=== PATIENT | male | born 1985 | race Two or more races ===

== ENCOUNTER 2020-04-13 00:58 | Emergency (ER) | payer BC ==
[2020-04-13] MEDS ORDERED: Pantoprazole 40 MG in Sodium Chloride 0.9% 10 ML IV ONE (01:30)
[2020-04-13] MEDS ORDERED: Morphine 4 MG/ML Syringe IVPUSH ONE (01:30)
[2020-04-13] MEDS ORDERED: Sodium Chloride 0.9% 1,000 ML IV ONE (01:30)
[2020-04-13] MEDS ORDERED: Sodium Chloride 0.9% 10 ML Syringe FLUSH PRN (01:30)
[2020-04-13] MEDS ORDERED: Ketorolac 15 MG/ML SDV IVPUSH ONE (01:30)
[2020-04-13] MEDS ORDERED: Ondansetron 4 MG/2 ML SDV IVPUSH ONE (01:30)
[2020-04-13] MEDS ORDERED: Sodium Chloride 0.9% 2.5 ML Syringe FLUSH PRN (01:30)
--- NOTE | 2020-04-13 01:33 | EDM.PDOC ---
ED HPI GENERAL MEDICAL PROBLEM - General Chief Complaint: Abdominal Pain Stated Complaint: GALL STONES Time Seen by Provider: 04/13/20 01:16 Source of Information: Reports: Patient History Limitations: Reports: No Limitations - History of Present Illness INITIAL COMMENTS - FREE TEXT/NARRATIVE: 34-year-old male with history of cholelithiasis presents with acute onset sharp, nonradiating, constant, postprandial right upper quadrant pain 2 hours ago. Alleviating factors associated with one episode of nonbilious and nonbloody vomitus. Denies fever, chills, shortness of breath, chest pain. He did drink beer and cocktail shots prior. ROS: A 10-point review of systems, other than pertinent positives and negatives as stated per HPI, is otherwise negative Past medical history: No additional pertinent history Past Surgical history: No additional pertinent history Social history: No additional pertinent history Family history: No additional pertinent history PHYSICAL EXAM General: AOx4, GCS = 15, BMI = 38, mild distress HEENT: dry mucous membrane Neck: supple, no meningismus, no Kernig or Brudzinski Cardiac: S1S2 RRR Respiratory: CTAB, no crackles or rales, no wheezing Abdomen: Soft, tender to right upper quadrant and epigastric, no rebound or guarding, nondistended, no pulsatile mass. Back: nontender Musculoskeletal: NVI distally, no deformity Neuro: No focal deficits, CN 2 - 12 WNL. RUQ Pain Score (Numeric/FACES): 8 - Related Data Allergies Allergy/AdvReac Type Severity Reaction Status Date / Time No Known Allergies Allergy Verified 04/13/20 01:03 Home Meds: Home Meds Naproxen [Naprosyn] 500 mg PO Q12HR #30 tab 04/13/20 [Rx] Past Medical History Other Gastrointestinal History: gall stones Social & Family History - Family History Family Medical History: No Pertinent Family History - Caffeine Use Caffeine Use: Reports: Energy Drinks - Recreational Drug Use Recreational Drug Use: No ED ROS GENERAL - Review of Systems Review Of Systems: See Below (see dictation) ED EXAM, GI/ABD - Physical Exam Exam: See Below (see dictation) ED ABDOMINAL/GI PROCEDURES - Ultrasound Ultrasound: Normal Progress: Right upper quadrant Ultrasound Indication: Evaluation for cholelithiasis, cholecystitis, CBD dilation Technique: Gallbladder in long axis and transverse axis were obtained with patient in left lateral decubitus position. Findings: GB wall thickness is 1.5mm, No gallbladder wall thickening, No pericholecystic fluid, multiple small gallstones at the fundus, CBD is 2.7mm Impression: Cholelithiasis Performed and interpreted at the time of patient care, scan image(s) archived. Certified by Ulises Malone MD Course - Vital Signs Last Recorded V/S: Last Vital Signs Temp 98.1 F 04/13/20 01:10 Pulse 58 L 04/13/20 02:02 Resp 16 04/13/20 02:02 BP 150/83 H 04/13/20 02:02 Pulse Ox 95 04/13/20 02:03 - Orders/Labs/Meds Orders: Active Orders 24 hr Category Date Time Status Sodium Chloride 0.9% [Normal Saline] 1,000 ml Med 04/13/20 01:30 Active IV .Bolus Sodium Chloride 0.9% [Saline Flush] Med 04/13/20 01:30 Active 10 ml FLUSH ASDIRECTED PRN Sodium Chloride 0.9% [Saline Flush] Med 04/13/20 01:30 Active 2.5 ml FLUSH ASDIRECTED PRN Saline Lock Insert [OM.PC] Stat Oth 04/13/20 01:30 Ordered Medication Orders Sodium Chloride (Normal Saline) 1,000 mls @ 999 mls/hr IV .Bolus ONE Stop: 04/13/20 02:30 Last Admin: 04/13/20 01:39 Dose: 999 mls/hr Documented by: DERICK Sodium Chloride (Saline Flush) 10 ml FLUSH ASDIRECTED PRN PRN Reason: Keep Vein Open Last Admin: 04/13/20 01:44 Dose: 10 ml Documented by: DERICK Sodium Chloride (Saline Flush) 2.5 ml FLUSH ASDIRECTED PRN PRN Reason: Keep Vein Open Last Admin: 04/13/20 01:43 Dose: 2.5 ml Documented by: DERICK Labs: Laboratory Tests 04/13/20 04/13/20 04/13/20 Range/Units 01:02 01:20 01:20 WBC 9.03 (4.0-11.0) K/uL RBC 6.04 H (4.50-5.90) M/uL Hgb 16.4 (13.0-17.0) g/dL Hct 48.4 (38.0-50.0) % MCV 80.1 (80.0-98.0) fL MCH 27.2 (27.0-32.0) pg MCHC 33.9 (31.0-37.0) g/dL RDW Std Deviation 39.9 (28.0-62.0) fl RDW Coeff of Cassie 14 (11.0-15.0) % Plt Count 317 (150-400) K/uL MPV 8.80 (7.40-12.00) fL Neut % (Auto) 60.5 (48.0-80.0) % Lymph % (Auto) 31.7 (16.0-40.0) % [place] % (Auto) 6.4 (0.0-15.0) % Eos % (Auto) 1.3 (0.0-7.0) % Baso % (Auto) 0.1 (0.0-1.5) % Neut # (Auto) 5.5 (1.4-5.7) K/uL Lymph # (Auto) 2.9 H (0.6-2.4) K/uL [place] # (Auto) 0.6 (0.0-0.8) K/uL Eos # (Auto) 0.1 (0.0-0.7) K/uL Baso # (Auto) 0.0 (0.0-0.1) K/uL Sodium 142 (136-148) mmol/L Potassium 3.4 L (3.5-5.1) mmol/L Chloride 102 (98-107) mmol/L Carbon Dioxide 28.5 (21.0-32.0) mmol/L BUN 10 (7.0-18.0) mg/dL Creatinine 1.4 H (0.8-1.3) mg/dL Est Cr Clr Drug Dosing 73.29 mL/min Estimated GFR (MDRD) 58.7 ml/min Glucose 130 H (74-106) mg/dL Calcium 8.7 (8.5-10.1) mg/dL Total Bilirubin 0.5 (0.2-1.0) mg/dL Direct Bilirubin 0.10 (0.0-0.5) mg/dL Indirect Bilirubin 0.40 AST 22 (15-37) IU/L ALT 74 H (14-63) IU/L Alkaline Phosphatase 95 (46-116) U/L Total Protein 8.2 (6.4-8.2) g/dL Albumin 4.2 (3.4-5.0) g/dL Globulin 4.0 (2.6-4.0) g/dL Albumin/Globulin Ratio 1.0 (0.9-1.6) Lipase 105 (73-393) U/L Urine Color YELLOW Urine Appearance CLEAR Urine pH 5.5 (5.0-8.0) Ur Specific [place] >= 1.030 (1.001-1.035) Urine Protein NEGATIVE (NEGATIVE) mg/dL Urine Glucose (UA) NEGATIVE (NEGATIVE) mg/dL Urine Ketones NEGATIVE (NEGATIVE) mg/dL Urine Occult Blood NEGATIVE (NEGATIVE) Urine Nitrite NEGATIVE (NEGATIVE) Urine Bilirubin NEGATIVE (NEGATIVE) Urine Urobilinogen 0.2 (<2.0) EU/dL Ur Leukocyte Esterase TRACE H (NEGATIVE) Urine RBC NONE SEEN (0-2/HPF) Urine WBC 3-5 (0-5/HPF) Ur Epithelial Cells OCCASIONAL (NONE-FEW) Urine Bacteria 1+ H (NEGATIVE) Urine Mucus LIGHT (NONE-MOD) Meds: Medications Generic Name Dose Route Start Last Admin Trade Name Freq PRN Reason Stop Dose Admin Sodium Chloride 1,000 mls @ 999 mls/hr 04/13/20 01:30 04/13/20 01:39 Normal Saline IV 04/13/20 02:30 999 mls/hr .Bolus ONE Administration Sodium Chloride 10 ml 04/13/20 01:30 04/13/20 01:44 Saline Flush FLUSH 10 ml ASDIRECTED PRN Administration Keep Vein Open Sodium Chloride 2.5 ml 04/13/20 01:30 04/13/20 01:43 Saline Flush FLUSH 2.5 ml ASDIRECTED PRN Administration Keep Vein Open Discontinued Medications Generic Name Dose Route Start Last Admin Trade Name Freq PRN Reason Stop Dose Admin Pantoprazole Sodium 40 mg/ 10 mls @ 300 mls/hr 04/13/20 01:30 04/13/20 01:43 Sodium Chloride IV 04/13/20 01:31 300 mls/hr NOW ONE Administration Ketorolac Tromethamine 15 mg 04/13/20 01:30 04/13/20 01:41 Toradol IVPUSH 04/13/20 01:31 15 mg ONETIME ONE Administration Morphine Sulfate 4 mg 04/13/20 01:30 04/13/20 01:41 Morphine IVPUSH 04/13/20 01:31 4 mg ONETIME ONE Administration Ondansetron HCl 4 mg 04/13/20 01:30 04/13/20 01:40 Zofran IVPUSH 04/13/20 01:31 4 mg ONETIME ONE Administration - Re-Assessments/Exams Free Text/Narrative Re-Assessment/Exam: 04/13/20 01:33 Ordered IV fluids, Zofran, Toradol, morphine. 04/13/20 02:33 after IV pain medication in the ER, his pain resolved and he is currently stable for discharge. I performed a repeat exam and did not appreciate new abnormal findings. Patient exhibits normal vital signs and has a normal gait on road test. I advised the patient to return to the ER for reevaluation if symptoms worsened, including fever, worsening pain, or any other worrisome symptoms. I instructed the patient to follow up with surgery clinic within 2-3 days to schedule for elective cholecystectomy. MEDICAL DECISION MAKING: I reviewed the patients past medical records, lab and radiographic findings. I discussed the case with the patient. My differential diagnosis included: Biliary colic, cholecystitis, pancreatitis. Patient had no fever or leukocytosis or tachycardia to suggest for significant infectious etiology, ultrasound did not demonstrate cholecystitis or choledocholithiasis. His lipase was unremarkable, I do not suspect pancreatitis. His pain resolved in the ER, stable for outpatient follow-up with surgery clinic for elective cholecystectomy. He was given strict return precautions. Departure - Departure Time of Disposition: 02:16 Disposition: Home, Self-Care 01 Condition: Good Clinical Impression: Biliary colic - Discharge Information *PRESCRIPTION DRUG MONITORING PROGRAM REVIEWED*: Not Applicable *COPY OF PRESCRIPTION DRUG MONITORING REPORT IN PATIENT ALICE: Not Applicable Prescriptions: Naproxen [Naprosyn] 500 mg PO Q12HR #30 tab Instructions: Biliary Colic, Adult Referrals: Ru Vu MD [Physician] - 2 Days Forms: ED Department Discharge Additional Instructions: The need for follow-up, as well as the timing and circumstances, are variable depending upon the specifics of your emergency department visit. If you don't have a primary care physician on staff, we will provide you with a referral. We always advise you to contact your personal physician following an emergency department visit to inform them of the circumstance of the visit and for follow-up with them and/or the need for any referrals to a consulting specialist. The emergency department will also refer you to a specialist when appropriate. This referral assures that you have the opportunity for follow-up care with a specialist. All of these measure are taken in an effort to provide you with optimal care, which includes your follow-up. Under all circumstances we always encourage you to contact your private physician who remains a resource for coordinating your care. When calling for follow-up care, please make the office aware that this follow-up is from your recent emergency room visit. If for any reason you are refused follow-up, please contact the [facility] Emergency Department at and asked to speak to the emergency department charge nurse. If you do not have a primary care doctor, please follow up with the clinics below within 3-5 days. [facility] - [facility] Professional Building [address] [place] [address], [address] [place] [address] Sepsis Event Note (ED) - Evaluation Sepsis Screening Result: No Definite Risk - Focused Exam Vital Signs: Vital Signs Temp Pulse Resp BP Pulse Ox 04/13/20 02:03 95 04/13/20 02:02 58 L 16 150/83 H 82 L 04/13/20 01:10 98.1 F 60 18 167/85 H 99 - My Orders Last 24 Hours: My Active Orders 04/13/20 01:30 Sodium Chloride 0.9% [Normal Saline] 1,000 ml IV .Bolus Sodium Chloride 0.9% [Saline Flush] 10 ml FLUSH ASDIRECTED PRN Sodium Chloride 0.9% [Saline Flush] 2.5 ml FLUSH ASDIRECTED PRN Saline Lock Insert [OM.PC] Stat - Assessment/Plan Last 24 Hours: My Active Orders 04/13/20 01:30 Sodium Chloride 0.9% [Normal Saline] 1,000 ml IV .Bolus Sodium Chloride 0.9% [Saline Flush] 10 ml FLUSH ASDIRECTED PRN Sodium Chloride 0.9% [Saline Flush] 2.5 ml FLUSH ASDIRECTED PRN Saline Lock Insert [OM.PC] Stat
[2020-04-13 02:00] LABS: BILIRUBIN INDIRECT 0.4; CARBON DIOXIDE,CO2 28.5 mmol/L (21.0-32.0); POTASSIUM,K 3.4 mmol/L (3.5-5.1)
== END 2020-04-13 03:35 | disposition home or self-care (01) ==
LOC: MW.ED 00:58
DX: K80.50 Calculus of bile duct without cholangitis or cholecystitis without obstruction (principal)
CPT/HCPCS: 36415; 80048; 80076; 81001; 83690; 85025; 96374; 96375; 99284; C9113; J1885; J2270; J2405; J7030; 99283

== ENCOUNTER 2020-04-24 07:12 | Emergency (ER) | payer BC ==
[2020-04-24] MEDS ORDERED: Sodium Chloride 0.9% 2.5 ML Syringe FLUSH PRN (07:13)
[2020-04-24] MEDS ORDERED: Sodium Chloride 0.9% 10 ML Syringe FLUSH PRN (07:13)
[2020-04-24] MEDS ORDERED: Ondansetron 4 MG/2 ML SDV IVPUSH ONE (07:13)
[2020-04-24] MEDS ORDERED: Morphine 4 MG/ML Syringe IVPUSH ONE ×2 (07:13→09:24)
[2020-04-24] MEDS ORDERED: Ketorolac 15 MG/ML SDV IVPUSH ONE (07:16)
--- NOTE | 2020-04-24 07:19 | EDM.PDOC ---
ED HPI GENERAL MEDICAL PROBLEM - General Chief Complaint: General Stated Complaint: GALL STONES Time Seen by Provider: 04/24/20 07:12 Source of Information: Reports: Patient History Limitations: Reports: No Limitations - History of Present Illness INITIAL COMMENTS - FREE TEXT/NARRATIVE: 34-year-old male past medical history cholelithiasis presents for right upper quadrant pain. Patient notes that he was diagnosed with gallstones roughly 8 months ago. Patient is from [place] and is here for work. He has had on and off issues with his gallbladder ever since his diagnosis. He did come to the ER roughly 11 days ago and was again diagnosed with cholelithiasis without evidence of cholecystitis or choledocholithiasis. He notes that he was given a prescription for naproxen but did not pick that up. He has been treating his pain at home with an old prescription of hydrocodone that he had gotten in [place] months ago, but he ran out this morning. He has also been using Tylenol. He notes some nausea without vomiting. Pain woke him from sleep today around 3 AM. He has had pain like this before but it does seem like it is becoming more common. He denies any fevers, changes in skin color, vomiting. His pain is localized to his right upper quadrant. Patient notes that he has not yet followed up with a general surgeon not due to lack of interest in surgery but rather concern for cost. abdomen Pain Score (Numeric/FACES): 8 - Related Data Allergies Allergy/AdvReac Type Severity Reaction Status Date / Time No Known Allergies Allergy Verified 04/13/20 01:03 Home Meds: Home Meds oxyCODONE HCl/Acetaminophen [Percocet 10-325 mg Tablet] 0.5 each PO Q4H PRN #18 tablet 04/24/20 [Rx] Past Medical History Other Gastrointestinal History: gall stones Social & Family History - Family History Family Medical History: No Pertinent Family History - Caffeine Use Caffeine Use: Reports: Energy Drinks ED ROS GENERAL - Review of Systems Review Of Systems: Comprehensive ROS is negative, except as noted in HPI. ED EXAM, GENERAL - Physical Exam Exam: See Below Exam Limited By: No Limitations General Appearance: Alert, WD/WN, Other (Uncomfortable appearing but in no apparent distress, speaking full sentences) Eye Exam: Bilateral Eye: Other (No scleral icterus noted) Throat/Mouth: Normal Voice, No Airway Compromise Head: Atraumatic, Normocephalic Neck: Normal Inspection Respiratory/Chest: No Respiratory Distress, No Accessory Muscle Use Cardiovascular: Normal Peripheral Pulses, Regular Rate, Rhythm GI/Abdominal: Soft, Other (Right upper quadrant tenderness to palpation) Extremities: Normal Inspection Neurological: Alert, Normal Gait Psychiatric: Normal Affect, Normal Mood Skin Exam: Warm, Dry, Intact, Normal Color, Other (No jaundice noted) Course - Vital Signs Last Recorded V/S: Last Vital Signs Temp 96 F L 04/24/20 07: Pulse 66 04/24/20 08:00 Resp 16 04/24/20 07:21 BP 144/79 H 04/24/20 08:00 Pulse Ox 100 04/24/20 08:00 - Orders/Labs/Meds Orders: Active Orders 24 hr Category Date Time Status Sodium Chloride 0.9% [Saline Flush] Med 04/24/20 07:13 Active 10 ml FLUSH ASDIRECTED PRN Sodium Chloride 0.9% [Saline Flush] Med 04/24/20 07:13 Active 2.5 ml FLUSH ASDIRECTED PRN Saline Lock Insert [OM.PC] Stat Oth 04/24/20 07:13 Ordered Medication Orders Sodium Chloride (Saline Flush) 10 ml FLUSH ASDIRECTED PRN PRN Reason: Keep Vein Open Last Admin: 04/24/20 07:29 Dose: 10 ml Documented by: LISE Sodium Chloride (Saline Flush) 2.5 ml FLUSH ASDIRECTED PRN PRN Reason: Keep Vein Open Last Admin: 04/24/20 07:29 Dose: 2.5 ml Documented by: LISE Labs: Laboratory Tests 04/24/20 04/24/20 Range/Units 07:34 07:34 WBC 10.84 (4.0-11.0) K/uL RBC 5.75 (4.50-5.90) M/uL Hgb 15.9 (13.0-17.0) g/dL Hct 47.6 (38.0-50.0) % MCV 82.8 (80.0-98.0) fL MCH 27.7 (27.0-32.0) pg MCHC 33.4 (31.0-37.0) g/dL RDW Std Deviation 41.0 (28.0-62.0) fl RDW Coeff of Cassie 14 (11.0-15.0) % Plt Count 299 (150-400) K/uL MPV 9.10 (7.40-12.00) fL Neut % (Auto) 72.9 (48.0-80.0) % Lymph % (Auto) 20.3 (16.0-40.0) % [place] % (Auto) 5.3 (0.0-15.0) % Eos % (Auto) 1.4 (0.0-7.0) % Baso % (Auto) 0.1 (0.0-1.5) % Neut # (Auto) 7.9 H (1.4-5.7) K/uL Lymph # (Auto) 2.2 (0.6-2.4) K/uL [place] # (Auto) 0.6 (0.0-0.8) K/uL Eos # (Auto) 0.2 (0.0-0.7) K/uL Baso # (Auto) 0.0 (0.0-0.1) K/uL Nucleated RBC % 0.0 /100WBC Nucleated RBCs # 0 K/uL Sodium 140 (136-148) mmol/L Potassium 3.7 (3.5-5.1) mmol/L Chloride 103 (98-107) mmol/L Carbon Dioxide 26.1 (21.0-32.0) mmol/L BUN 10 (7.0-18.0) mg/dL Creatinine 1.3 (0.8-1.3) mg/dL Est Cr Clr Drug Dosing 78.92 mL/min Estimated GFR (MDRD) > 60.0 ml/min Glucose 117 H (74-106) mg/dL Calcium 8.7 (8.5-10.1) mg/dL Total Bilirubin 0.8 (0.2-1.0) mg/dL AST 29 (15-37) IU/L ALT 69 H (14-63) IU/L Alkaline Phosphatase 95 (46-116) U/L Total Protein 7.8 (6.4-8.2) g/dL Albumin 3.9 (3.4-5.0) g/dL Globulin 3.9 (2.6-4.0) g/dL Albumin/Globulin Ratio 1.0 (0.9-1.6) Lipase 89 (73-393) U/L Meds: Medications Generic Name Dose Route Start Last Admin Trade Name Arya PRN Reason Stop Dose Admin Sodium Chloride 10 ml 04/24/20 07:13 04/24/20 07:29 Saline Flush FLUSH 10 ml ASDIRECTED PRN Administration Keep Vein Open Sodium Chloride 2.5 ml 04/24/20 07:13 04/24/20 07:29 Saline Flush FLUSH 2.5 ml ASDIRECTED PRN Administration Keep Vein Open Discontinued Medications Generic Name Dose Route Start Last Admin Trade Name Arya PRN Reason Stop Dose Admin Sodium Chloride 1,000 mls @ 999 mls/hr 04/24/20 07:26 04/24/20 07:29 Normal Saline IV 04/24/20 08:26 999 mls/hr .Bolus ONE Administration Ketorolac Tromethamine 15 mg 04/24/20 07:16 04/24/20 07:29 Toradol IVPUSH 04/24/20 07:17 15 mg ONETIME ONE Administration Morphine Sulfate 4 mg 04/24/20 07:13 04/24/20 07:30 Morphine IVPUSH 04/24/20 07:14 4 mg ONETIME ONE Administration Ondansetron HCl 4 mg 04/24/20 07:13 04/24/20 07:30 Zofran IVPUSH 04/24/20 07:14 4 mg ONETIME ONE Administration Oxycodone/Acetaminophen 2 tab 04/24/20 08:29 04/24/20 08:41 Percocet 325-5 Mg PO 04/24/20 08:30 2 tab ONETIME ONE Administration - Re-Assessments/Exams Free Text/Narrative Re-Assessment/Exam: 04/24/20 07:39 Patient presents with right upper quadrant pain and known setting of gallbladder disease. Will get labs including CBC to check for signs of leukoc ytosis/infection. Will get CMP to evaluate LFTs and bilirubin levels. Will get lipase to ensure no pancreatitis. Will consider imaging based on lab results although would prefer to defer imaging if patient does not have signs of infection as he has known gallbladder disease likely causing his pain. Will give Toradol and morphine for analgesia. Will give 1 L IV fluid bolus. Will give Zofran for nausea. We will follow up results and disposition accordingly. 04/24/20 08:06 Labs grossly unremarkable; will reassess pain and disposition accordingly 04/24/20 08:29 Patient's pain is improved, however it starting to come back. I like to send patient home so we will trial oral opioid. We will follow-up pain reassessment and disposition accordingly. 04/24/20 09:06 Patient still in mild pain but better controlled. Spoke with patient at length about importance of follow-up with general surgery for assessment for cholecystectomy. Return precautions were discussed at length. Departure - Departure Time of Disposition: 09:06 Disposition: Home, Self-Care 01 Condition: Good Clinical Impression: Biliary colic - Discharge Information Prescriptions: oxyCODONE HCl/Acetaminophen [Percocet 10-325 mg Tablet] 0.5 each PO Q4H PRN #18 tablet PRN Reason: Pain Referrals: PCP,None [Primary Care Provider] - Forms: ED Department Discharge Additional Instructions: Your labs are grossly unremarkable. Your pain is most likely from your known gallbladder disease. I sent you pain medication to your pharmacy. You can take half a tab and if that is not sufficient a full tab every 4 hours. This medication is safe to take with NSAIDs such as Advil or Motrin. You need to follow-up with a general surgeon. Information is provided below, and you were put on her follow-up list so they should be calling you to help schedule an appointment. If you develop vomiting with inability to keep any food down, worsening pain not well controlled with medication at home, fever, or yellowing of your eyes or skin these can all be signs of a serious infection and you should come back to the hospital. [facility] General Surgery Professional [address], [address] [place] [address] The following information is given to patients seen in the emergency department who are being discharged to home. This information is to outline your options for follow-up care. We provide all patients seen in our emergency department with a follow-up referral. The need for follow-up, as well as the timing and circumstances, are variable depending upon the specifics of your emergency department visit. If you don't have a primary care physician on staff, we will provide you with a referral. We always advise you to contact your personal physician following an emergency department visit to inform them of the circumstance of the visit and for follow-up with them and/or the need for any referrals to a consulting specialist. The emergency department will also refer you to a specialist when appropriate. This referral assures that you have the opportunity for follow-up care with a specialist. All of these measure are taken in an effort to provide you with optimal care, which includes your follow-up. Under all circumstances we always encourage you to contact your private physician who remains a resource for coordinating your care. When calling for follow-up care, please make the office aware that this follow-up is from your recent emergency room visit. If for any reason you are refused follow-up, please contact the [facility] Emergency Department at and asked to speak to the emergency department charge nurse. Please follow up with your primary care physician. If you do not have a primary care physician, see below: [facility] [address] [place] [id number] [facility] [address] [place] [id number] [facility] [address] [place] [id number] Sepsis Event Note (ED) - Focused Exam Vital Signs: Vital Signs Temp Pulse Resp BP Pulse Ox 04/24/20 08:00 66 144/79 H 100 04/24/20 07:38 163/77 H 04/24/20 07:21 96 F L 58 L 16 186/91 H 100 - My Orders Last 24 Hours: My Active Orders 04/24/20 07:13 Sodium Chloride 0.9% [Saline Flush] 10 ml FLUSH ASDIRECTED PRN Sodium Chloride 0.9% [Saline Flush] 2.5 ml FLUSH ASDIRECTED PRN Saline Lock Insert [OM.PC] Stat - Assessment/Plan Last 24 Hours: My Active Orders 04/24/20 07:13 Sodium Chloride 0.9% [Saline Flush] 10 ml FLUSH ASDIRECTED PRN Sodium Chloride 0.9% [Saline Flush] 2.5 ml FLUSH ASDIRECTED PRN Saline Lock Insert [OM.PC] Stat
[2020-04-24] MEDS ORDERED: Sodium Chloride 0.9% 1,000 ML IV ONE (07:26)
[2020-04-24 08:00] LABS: BLOOD UREA NITROGEN,BUN 10 mg/dL (7.0-18.0); CARBON DIOXIDE,CO2 26.1 mmol/L (21.0-32.0); CHLORIDE,CL 103 mmol/L (98-107); GLUCOSE RANDOM 117 mg/dL (74-106); LIPASE 89 U/L (73-393); POTASSIUM,K 3.7 mmol/L (3.5-5.1); SODIUM,NA 140 mmol/L (136-148)
[2020-04-24] MEDS ORDERED: Acetaminophen/oxyCODONE 325-5 MG Tab PO ONE (08:29)
== END 2020-04-24 10:05 | disposition home or self-care (01) ==
LOC: MW.ED 07:12
DX: K80.50 Calculus of bile duct without cholangitis or cholecystitis without obstruction (principal)
CPT/HCPCS: 36415; 80053; 83690; 85025; 96374; 96375; 96376; 99284; A9270; J1885; J2270; J2405; J7030; 99283

== ENCOUNTER 2020-04-26 10:01 | Inpatient (IN) | payer BC ==
[2020-04-26] MEDS ORDERED: fentaNYL 100 MCG/2 ML SDV ONE ×3 (10:39→12:52)
[2020-04-26] MEDS ORDERED: Propofol 200 MG/20 ML SDV ONE ×2 (10:39→14:15)
[2020-04-26] MEDS ORDERED: Midazolam 1 MG/ML 2 ML SDV ONE (10:39)
[2020-04-26] MEDS ORDERED: Ondansetron 4 MG/2 ML SDV ONE (10:39)
[2020-04-26] MEDS ORDERED: Glycopyrrolate 0.2 MG/ML SDV ONE (10:40)
[2020-04-26] MEDS ORDERED: Rocuronium Bromide 50 MG/5 ML Syringe ONE ×2 (10:40→13:01)
[2020-04-26] MEDS ORDERED: Lidocaine 2% 5 ML SDV ONE (10:40)
[2020-04-26] MEDS ORDERED: Bupivacaine 0.5% 10 ML SDV ONE (10:44)
[2020-04-26] MEDS ORDERED: Scopolamine 1.5 MG Transdermal Patch TRDERM PRN (11:30)
--- NOTE | 2020-04-26 11:35 | PCM.PREANE ---
Preanesthetic Assessment - Anesthesia/Transfusion/Family Hx Anesthesia History: Prior Anesthesia Without Reaction Family History of Anesthesia Reaction: No Transfusion History: No Prior Transfusion(s) - Review of Systems General: No Symptoms Pulmonary: No Symptoms Cardiovascular: No Symptoms Gastrointestinal: No Symptoms Neurological: No Symptoms Other: Reports: None - Physical Assessment NPO Status Date: 04/25/20 Height: 5 ft 8 in Weight: 111.13 kg ASA Class: 1 Mental Status: Alert & Oriented x3 Airway Class: Mallampati = 2 Dentition: Reports: Normal Dentition ROM/Head Extension: Full Lungs: Clear to Auscultation, Normal Respiratory Effort Cardiovascular: Regular Rate, Regular Rhythm - Lab Values: Laboratory Last Values SARS-CoV-2 RNA (JUAN A) NEGATIVE (NEGATIVE) 04/26/20 10:15 - Allergies Allergies/Adverse Reactions: Allergies Allergy/AdvReac Type Severity Reaction Status Date / Time No Known Allergies Allergy Verified 04/26/20 07:38 - Acknowledgements Anesthesia Type Planned: General Anesthesia Pt an Appropriate Candidate for the Planned Anesthesia: Yes Alternatives and Risks of Anesthesia Discussed w Pt/Guardian: Yes Pt/Guardian Understands and Agrees with Anesthesia Plan: Yes PreAnesthesia Questionnaire - Past Health History Medical/Surgical History: Denies Medical/Surgical History HEENT History: Reports: None Cardiovascular History: Reports: None Respiratory History: Reports: None Gastrointestinal History: Reports: Other (See Below) Other Gastrointestinal History: gall stones Genitourinary History: Reports: None Musculoskeletal History: Reports: None Neurological History: Reports: None Psychiatric History: Reports: None Endocrine/Metabolic History: Reports: Obesity/BMI 30+ Hematologic History: Reports: None Immunologic History: Reports: None Oncologic (Cancer) History: Reports: None Dermatologic History: Reports: None - Past Surgical History Head Surgeries/Procedures: Reports: None Endocrine Surgical History: Reports: None Musculoskeletal Surgical History: Reports: Arthroscopic Knee Other Musculoskeletal Surgeries/Procedures:: knee surgery right - SUBSTANCE USE Tobacco Use Status *Q: Never Tobacco User - HOME MEDS Home Medications: Home Meds oxyCODONE HCl/Acetaminophen [Percocet 10-325 mg Tablet] 0.5 each PO Q4H PRN 04/26/20 [History] - CURRENT (IN HOUSE) MEDS Current Meds: Current Medications Lactated Ringer's (Ringers, Lactated) 1,000 mls @ 125 mls/hr IV ASDIRECTED VALERIE Scopolamine (Transderm-Scop) 1.5 mg TRDERM Q72H PRN PRN Reason: Nausea Discontinued Medications Bupivacaine HCl (Sensorcaine-Mpf 0.5%) Confirm Administered Dose 20 ml .ROUTE .STK-MED ONE Stop: 04/26/20 10:45 Fentanyl (Sublimaze) Confirm Administered Dose 100 mcg .ROUTE .STK-MED ONE Stop: 04/26/20 10:40 Glycopyrrolate (Robinul) Confirm Administered Dose 0.4 mg .ROUTE .STK-MED ONE Stop: 04/26/20 10:41 Lidocaine (Xylocaine-Mpf 2%) Confirm Administered Dose 5 ml .ROUTE .STK-MED ONE Stop: 04/26/20 10:41 Midazolam HCl (Versed 1 Mg/Ml) Confirm Administered Dose 2 mg .ROUTE .STK-MED ONE Stop: 04/26/20 10:40 Ondansetron HCl (Zofran) Confirm Administered Dose 4 mg .ROUTE .STK-MED ONE Stop: 04/26/20 10:40 Propofol (Diprivan 20 Ml) Confirm Administered Dose 400 mg .ROUTE .STK-MED ONE Stop: 04/26/20 10:40 Rocuronium Turtlepoint (Rocuronium Turtlepoint) Confirm Administered Dose 50 mg .ROUTE .STK-MED ONE Stop: 04/26/20 10:41
[2020-04-26] MEDS ORDERED: Sodium Chloride 0.9% 20 ML ONE (11:40)
[2020-04-26] MEDS ORDERED: ceFAZolin 1 GM Vial ONE ×2 (11:40→13:07)
[2020-04-26] MEDS ORDERED: Lactated Ringers 1,000 ML IV SCH ×2 (11:45→14:45)
[2020-04-26] MEDS ORDERED: Bupivacaine 0.5% 30 ML SDV ONE (13:02)
[2020-04-26] MEDS ORDERED: HYDROmorphone 2 MG/ML Syringe ONE (13:04)
[2020-04-26] MEDS ORDERED: Sodium Chloride 0.9% 10 ML SDV IV PRN (14:45)
[2020-04-26] MEDS ORDERED: Sodium Chloride 0.9% 2.5 ML Syringe FLUSH PRN (14:45)
[2020-04-26] MEDS ORDERED: HYDROmorphone 2 MG/ML Syringe IVPUSH PRN (14:45)
[2020-04-26] MEDS ORDERED: Sodium Chloride 0.9% 10 ML Syringe FLUSH PRN (14:45)
[2020-04-26] MEDS ORDERED: diphenhydrAMINE 50 MG/ML SDV IVPUSH PRN (14:45)
--- NOTE | 2020-04-26 14:58 | PCM.OPNOTE ---
- General Post-Op/Procedure Note Date of Surgery/Procedure: 04/26/20 Operative Procedure(s): Laparoscopic converted to open cholecystectomy Findings: Severely inflamed and thickened gallbladder with large stone impacted at the neck. Pre Op Diagnosis: Acute cholecystitis due to biliary calculus Post-Op Diagnosis: same Anesthesia Technique: General ET Tube Primary Surgeon: Fernanda Garrido Secondary Surgeon: Adriano Chairez Fluid Replacement, Intraop: 2,500 Output, Urine Amount: 30 EBL in mLs: 900 Surgical Drain/Tube Type: Zak Drain Condition: Good
[2020-04-26] MEDS ORDERED: Piperacillin/Tazobactam 3.375 GM in Sodium Chloride 0.9% 100 ML IV SCH (15:00)
[2020-04-26] MEDS: Ketorolac 30 MG/ML SDV IVPUSH SCH ×2 (15:09→21:03)
[2020-04-26] MEDS ORDERED: Acetaminophen 1,000 MG in Premix Bag 1 BAG IV ONE (15:09)
--- NOTE | 2020-04-26 15:41 | PCM.POSTAN ---
POST ANESTHESIA ASSESSMENT - MENTAL STATUS Mental Status: Alert, Oriented - VITAL SIGNS Vital Signs: Last Vital Signs Temp 97.2 F 04/26/20 14:50 Pulse 73 04/26/20 15:36 Resp 16 04/26/20 15:36 BP 145/79 H 04/26/20 15:36 Pulse Ox 99 04/26/20 15:36 - RESPIRATORY Respiratory Status: Respiratory Rate WNL, Airway Patent, O2 Saturation Stable - CARDIOVASCULAR CV Status: Pulse Rate WNL, Blood Pressure Stable - GASTROINTESTINAL GI Status: No Symptoms - POST OP HYDRATION Hydration Status: Adequate & Stable
[2020-04-26 15:44] LABS: BLOOD UREA NITROGEN,BUN 12 mg/dL (7.0-18.0); CARBON DIOXIDE,CO2 23.9 mmol/L (21.0-32.0); CHLORIDE,CL 103 mmol/L (98-107); GLUCOSE RANDOM 96 mg/dL (74-106); POTASSIUM,K 3.8 mmol/L (3.5-5.1); SODIUM,NA 139 mmol/L (136-148)
--- NOTE | 2020-04-26 17:13 | OR ---
SURGEON: FERNANDA JARRETT MD DATE OF PROCEDURE: 04/26/2020 PREOPERATIVE DIAGNOSES: Acute cholecystitis due to biliary calculus. POSTOPERATIVE DIAGNOSES: Acute cholecystitis due to biliary calculus.. PROCEDURE PERFORMED: Laparoscopic converted to open cholecystectomy. PRIMARY SURGEON: Fernanda Jarrett MD SECOND SURGEON: Adriano Chairez M.D. ANESTHESIA: General endotracheal anesthesia. FLUIDS: 2500 mL of crystalloid. ESTIMATED BLOOD LOSS: 900 mL. URINE OUTPUT: 30 mL. FINDINGS: Severely inflamed and thickened gallbladder containing a large stone impacted at the neck of the gallbladder. COMPLICATIONS: None. INDICATIONS: The patient is a 34-year-old male with a history of symptomatic cholelithiasis who presented to the emergency room on Saturday with severe right upper quadrant pain. His lab workup appeared normal, so no imaging was performed. He was sent home with pain medication. He presented to my clinic the next day. The patient had a positive Aiken sign and stat imaging was performed, which showed signs of acute cholecystitis. I explained to the patient the need to perform a laparoscopic or possible open cholecystectomy. I explained the procedures, expected perioperative course, and the risks including bleeding, infection, or damage to surrounding structures. He verbalized understanding and wishes to proceed. PROCEDURE IN DETAIL: The patient was brought to the OR and placed on the OR table in supine position. A time-out was completed verifying the patient's name, age, date of , allergies, and procedure to be performed. General endotracheal anesthesia was induced. The left arm was tucked to the patient's side, and a Marquez catheter placed. The abdomen was prepped and draped in usual standard fashion. I anesthetized the infraumbilical fold with 0.5% Marcaine plain. An 11 blade was used to make an incision along this fold. Cautery was used to dissect down through the layers of the subcutaneous fat. I then bluntly dissected down to the fascia. The fascia was elevated with Kochers and incised sharply with curved Alexis scissors. The posterior fascia was elevated with hemostats and incised sharply. The peritoneum was grasped with hemostats and opened sharply as well. Entry into the abdomen was palpated digitally. A [address] trocar was inserted, and the abdomen insufflated. A 5 mm 30-degree scope was inserted, and I inspected the area underneath my initial trocar placement. No damage to surrounding structures was noted. The patient was placed in a reverse Trendelenburg position and airplaned slightly to the left. 5 mm trocars were placed in the following locations under direct visualization; one in the epigastric area, one in the right flank, and one 2 fingerbreadths below the right subcostal margin in the midclavicular line. The gallbladder was grossly distended, thickened, and inflamed and was covered in edematous omentum. Using suction, I gently peeled away the omentum from the gallbladder wall. Given how distended the gallbladder was, I was unable to grasp it. A laparoscopic drainage needle was brought into the field. I pierced through the dome of the gallbladder and aspirated about 60 mL of green-appearing bile. After doing this, I was able to grasp the dome of the gallbladder and elevate it cranially. Again, the fat along the proximal half of the gallbladder was thickened and inflamed. Using a Kittner and suction, I peeled away this inflamed rind and was able to get down to the infundibulum. At the neck of the gallbladder, I could palpate a large impacted stone. I was able to grasp the proximal portion of the gallbladder and I began dissection along this area. I avoided any electrocautery and instead used a combination of techniques to gently dissect away the tissues from around the cystic duct. I could identify the cystic duct, but along the cystic plate, the tissues were more difficult to identify. The more dissection I attempted to perform, the more bleeding I encountered. I attempted to take down the gallbladder in a dome down fashion both laterally and medially, but the gallbladder was encased in a thickened rind, and I was unable to do this safely. After about 1 hour of dissection, the decision was made to convert instead to open. Dr. Adriano Chairez was called into the case to assist. The 5 mm and 12 mm ports were removed. I closed the fascia at the infraumbilical port site with interrupted 0 Vicryl sutures. I then made a right upper quadrant oblique incision connecting my epigastric and subcostal port sites using a 15 blade. Electrocautery was used to dissect down through the layers of the abdominal wall. Once I reached the posterior fascia, it was elevated and incised sharply. Entry into the abdomen was obtained. I then extended my incision both medially and laterally. Moistened laps were placed into the abdomen, and retractors were used to expose the gallbladder and liver bed. Along the proximal half of the gallbladder, I could palpate the impacted stone. In order to drain the gallbladder more adequately, a metal trocar was placed through the dome of the gallbladder. Suction aspiration was performed. A small amount of fluid was obtained. The trocar site was then closed with a pursestring suture. The decision was made to proceed in a dome-down fashion. Using a combination of sharp dissection and electrocautery, we created a plane between the gallbladder wall and the cystic plate. Using finger dissection, we were able to create a plane between the body of the gallbladder and the cystic plate. This was carried down more proximally. The closer we got to the proximal cystic plate, the more thickened and inflamed the rind around the gallbladder was. We were able to meticulously dissect through this. Once we had dissected enough of the distal half of the gallbladder, we were able to then grasp the proximal half. We attempted to open the gallbladder to dislodge the impacted stone, but due to how thick the gallbladder wall was, we were unable to do this safely. Instead, we continued our dissection down the cystic plate. Eventually, we were able to identify the cystic duct and artery. These were densely adhered to one another. Using a right angle and gentle blunt dissection, we were able to separate them. The cystic artery was doubly clipped and ligated. We then continued dissecting free the cystic duct. Once this was cleared away from the surrounding structures, we doubly ligated it with 0 Vicryl suture. Proximally, a 5 mm clip was placed. We then cut the cystic duct just beyond the 2 sutures at the level of the gallbladder. The gallbladder was then passed off the field. Surgicel and Avitene were then placed in the gallbladder fossa and pressure held for 2 minutes. Once this was performed, we reinspected our operative field, and hemostasis was achieved. The patient had approximately 900 mL of blood loss. We then irrigated the right upper quadrant with Ancef normal saline solution and suctioned this out. A 24-Khmer Zak drain was placed through the right lateral flank port and brought into the gallbladder fossa. It was secured at the skin using a 2-0 silk suture. The peritoneum and posterior fascia were closed with running 0 Vicryl sutures. The anterior abdominal wall fascia was closed with interrupted 0 Ethibond sutures. An On-Q pump was placed overlying the anterior fascia. The subcutaneous fat layer was closed with a running 3-0 Vicryl stitch. The skin was closed with skin sy. The skin at the periumbilical site was closed with skin sy as well. The patient tolerated the procedure well and was taken to PACU in stable condition. All counts were complete and correct at the end of the case. RUFINO / LUDY /[id number] DANIA
[2020-04-26] MEDS: Piperacillin/Tazobactam 3.375 GM in Sodium Chloride 0.9% 100 ML IV SCH (17:37)
[2020-04-26] MEDS: Lactated Ringers 1,000 ML IV SCH (18:36)
[2020-04-26] MEDS: Cyclobenzaprine 5 MG Tab PO SCH (21:04)
[2020-04-27] MEDS: Piperacillin/Tazobactam 3.375 GM in Sodium Chloride 0.9% 100 ML IV SCH ×3 (00:19→12:04)
[2020-04-27] MEDS: Ketorolac 30 MG/ML SDV IVPUSH SCH ×2 (03:27→08:37)
[2020-04-27] MEDS: Lactated Ringers 1,000 ML IV SCH (03:28)
[2020-04-27 05:55] LABS: BLOOD UREA NITROGEN,BUN 8 mg/dL (7.0-18.0); CARBON DIOXIDE,CO2 28.3 mmol/L (21.0-32.0); CHLORIDE,CL 102 mmol/L (98-107); GLUCOSE RANDOM 129 mg/dL (74-106); POTASSIUM,K 3.7 mmol/L (3.5-5.1); SODIUM,NA 137 mmol/L (136-148)
[2020-04-27] MEDS: Omeprazole 20 MG Cap.CR PO SCH (06:36)
[2020-04-27] MEDS: Cyclobenzaprine 5 MG Tab PO SCH ×3 (06:36→22:06)
--- NOTE | 2020-04-27 07:51 | PCM48HPAN ---
Post Anesthesia Note - EVALUATION WITHIN 48HRS OF ANESTHETIC Vital Signs in Normal Range: Yes Patient Participated in Evaluation: Yes Respiratory Function Stable: Yes Airway Patent: Yes Cardiovascular Function Stable: Yes Hydration Status Stable: Yes Pain Control Satisfactory: Yes Nausea and Vomiting Control Satisfactory: Yes Mental Status Recovered: Yes Vital Signs: Last Vital Signs Temp 98.8 F 04/27/20 03:56 Pulse 77 04/27/20 03:56 Resp 18 04/27/20 03:56 BP 111/53 L 04/27/20 03:56 Pulse Ox 97 04/27/20 03:56 - COMMENTS/OBSERVATIONS Free Text/Narrative:: No anesthesia issues
--- NOTE | 2020-04-27 08:25 | PCM.SURGPN ---
- General Info Date of Service: 04/27/20 Date of Surgery/Procedure: 04/26/20 POD#: 1 - Review of Systems General: Reports: Fatigue HEENT: Reports: No Symptoms Pulmonary: Reports: No Symptoms Cardiovascular: Reports: No Symptoms Gastrointestinal: Reports: Abdominal Pain (with movement and deep dreathing along incision ) Genitourinary: Reports: No Symptoms Musculoskeletal: Reports: No Symptoms Skin: Reports: No Symptoms - Patient Data Vitals - Most Recent: Last Vital Signs Temp 36.8 C 04/27/20 08:15 Pulse 86 04/27/20 08:15 Resp 12 04/27/20 08:15 BP 111/54 L 04/27/20 08:15 Pulse Ox 96 04/27/20 08:15 Weight - Most Recent: 111.13 kg I&O - Last 24 Hours: Intake & Output 04/26/20 04/27/20 04/27/20 22:59 06:59 14:59 Intake Total 4200 2974 161 Output Total 600 3200 Balance 3600 -226 161 Lab Results Last 24 Hrs: Laboratory Results - last 24 hr 04/26/20 04/26/20 04/26/20 Range/Units 10:15 13:48 13:49 WBC (4.0-11.0) K/uL RBC (4.50-5.90) M/uL Hgb 14.9 (13.0-17.0) g/dL Hct 44.2 (38.0-50.0) % MCV (80.0-98.0) fL MCH (27.0-32.0) pg MCHC (31.0-37.0) g/dL RDW Std Deviation (28.0-62.0) fl RDW Coeff of Cassie (11.0-15.0) % Plt Count (150-400) K/uL MPV (7.40-12.00) fL Nucleated RBC % /100WBC Nucleated RBCs # K/uL Sodium (136-148) mmol/L Potassium (3.5-5.1) mmol/L Chloride (98-107) mmol/L Carbon Dioxide (21.0-32.0) mmol/L BUN (7.0-18.0) mg/dL Creatinine (0.8-1.3) mg/dL Est Cr Clr Drug Dosing mL/min Estimated GFR (MDRD) ml/min Glucose (74-106) mg/dL Calcium (8.5-10.1) mg/dL Phosphorus (2.6-4.7) mg/dL Magnesium (1.8-2.4) mg/dL Total Bilirubin (0.2-1.0) mg/dL AST (15-37) IU/L ALT (14-63) IU/L Alkaline Phosphatase (46-116) U/L Total Protein (6.4-8.2) g/dL Albumin (3.4-5.0) g/dL Globulin (2.6-4.0) g/dL Albumin/Globulin Ratio (0.9-1.6) SARS-CoV-2 RNA (JUAN A) NEGATIVE (NEGATIVE) Blood Type A POSITIVE Antibody Screen NEGATIVE Crossmatch See Detail 04/26/20 04/26/20 04/27/20 Range/Units 15:11 15:11 05:07 WBC 14.74 H 9.88 (4.0-11.0) K/uL RBC 5.66 4.87 (4.50-5.90) M/uL Hgb 15.9 13.1 (13.0-17.0) g/dL Hct 47.2 40.6 (38.0-50.0) % MCV 83.4 83.4 (80.0-98.0) fL MCH 28.1 26.9 L (27.0-32.0) pg MCHC 33.7 32.3 (31.0-37.0) g/dL RDW Std Deviation 41.8 40.9 (28.0-62.0) fl RDW Coeff of Cassie 14 14 (11.0-15.0) % Plt Count 249 281 (150-400) K/uL MPV 9.20 9.30 (7.40-12.00) fL Nucleated RBC % 0.0 0.0 /100WBC Nucleated RBCs # 0 0 K/uL Sodium 139 (136-148) mmol/L Potassium 3.8 (3.5-5.1) mmol/L Chloride 103 (98-107) mmol/L Carbon Dioxide 23.9 (21.0-32.0) mmol/L BUN 12 (7.0-18.0) mg/dL Creatinine 1.1 (0.8-1.3) mg/dL Est Cr Clr Drug Dosing 93.27 mL/min Estimated GFR (MDRD) > 60.0 ml/min Glucose 96 (74-106) mg/dL Calcium 8.7 (8.5-10.1) mg/dL Phosphorus (2.6-4.7) mg/dL Magnesium (1.8-2.4) mg/dL Total Bilirubin (0.2-1.0) mg/dL AST (15-37) IU/L ALT (14-63) IU/L Alkaline Phosphatase (46-116) U/L Total Protein (6.4-8.2) g/dL Albumin (3.4-5.0) g/dL Globulin (2.6-4.0) g/dL Albumin/Globulin Ratio (0.9-1.6) SARS-CoV-2 RNA (JUAN A) (NEGATIVE) Blood Type Antibody Screen Crossmatch 04/27/20 Range/Units 05:07 WBC (4.0-11.0) K/uL RBC (4.50-5.90) M/uL Hgb (13.0-17.0) g/dL Hct (38.0-50.0) % MCV (80.0-98.0) fL MCH (27.0-32.0) pg MCHC (31.0-37.0) g/dL RDW Std Deviation (28.0-62.0) fl RDW Coeff of Cassie (11.0-15.0) % Plt Count (150-400) K/uL MPV (7.40-12.00) fL Nucleated RBC % /100WBC Nucleated RBCs # K/uL Sodium 137 (136-148) mmol/L Potassium 3.7 (3.5-5.1) mmol/L Chloride 102 (98-107) mmol/L Carbon Dioxide 28.3 (21.0-32.0) mmol/L BUN 8 (7.0-18.0) mg/dL Creatinine 1.2 (0.8-1.3) mg/dL Est Cr Clr Drug Dosing 85.50 mL/min Estimated GFR (MDRD) > 60.0 ml/min Glucose 129 H (74-106) mg/dL Calcium 7.8 L (8.5-10.1) mg/dL Phosphorus 3.1 (2.6-4.7) mg/dL Magnesium 1.6 L (1.8-2.4) mg/dL Total Bilirubin 1.9 H (0.2-1.0) mg/dL AST 46 H (15-37) IU/L ALT 73 H (14-63) IU/L Alkaline Phosphatase 66 (46-116) U/L Total Protein 6.4 (6.4-8.2) g/dL Albumin 2.7 L (3.4-5.0) g/dL Globulin 3.7 (2.6-4.0) g/dL Albumin/Globulin Ratio 0.7 L (0.9-1.6) SARS-CoV-2 RNA (JUAN A) (NEGATIVE) Blood Type Antibody Screen Crossmatch Med Orders - Current: Current Medications Hydrocodone Bitart/Acetaminophen ([place] 325-5 Mg) 2 tab PO Q4H PRN PRN Reason: Pain (moderate 4-6) Cyclobenzaprine HCl (Flexeril) 5 mg PO TID [facility] Last Admin: 04/27/20 06:36 Dose: 5 mg Documented by: Diphenhydramine HCl (Benadryl) 50 mg IVPUSH Q4H PRN PRN Reason: Itching Hydromorphone HCl (Dilaudid) 0.5 mg IVPUSH Q1H PRN PRN Reason: Pain (severe 7-10) Lactated Ringer's (Ringers, Lactated) 1,000 mls @ 999 mls/hr IV .BOLUS [facility] Piperacillin Sod/Tazobactam (Sod 3.375 gm/ Sodium Chloride) 100 mls @ 200 mls/hr IV Q6H [facility] Last Admin: 04/27/20 06:35 Dose: 200 mls/hr Documented by: Ketorolac Tromethamine (Toradol) 30 mg IVPUSH Q6H [facility] Stop: 04/27/20 08:46 Last Admin: 04/27/20 03:27 Dose: 30 mg Documented by: Magnesium Chloride (Mag-64) 64 mg PO DAILY [facility] Multivitamins/Minerals/Vitamin C (Tab-A-Charla) 1 tab PO DAILY [facility] Omeprazole (Omeprazole) 20 mg PO ACBREAKFAST [facility] Last Admin: 04/27/20 06:36 Dose: 20 mg Documented by: Polyethylene Glycol (Miralax) 17 gm PO DAILY [facility] Scopolamine (Transderm-Scop) 1.5 mg TRDERM Q72H PRN PRN Reason: Nausea Last Admin: 04/26/20 11:40 Dose: 1.5 mg Documented by: Sodium Chloride (Saline Flush) 10 ml FLUSH ASDIRECTED PRN PRN Reason: Keep Vein Open Sodium Chloride (Saline Flush) 2.5 ml FLUSH ASDIRECTED PRN PRN Reason: Keep Vein Open Sodium Chloride (Normal Saline) 10 ml IV ASDIRECTED PRN PRN Reason: IV Use Discontinued Medications Bupivacaine HCl (Sensorcaine-Mpf 0.5%) Confirm Administered Dose 20 ml .ROUTE .STK-MED ONE Stop: 04/26/20 10:45 Bupivacaine HCl (Marcaine 0.5%) Confirm Administered Dose 150 ml .ROUTE .STK-MED ONE Stop: 04/26/20 13:03 Cefazolin Sodium (Ancef) Confirm Administered Dose 2 gm .ROUTE .STK-MED ONE Stop: 04/26/20 11:41 Cefazolin Sodium (Ancef) Confirm Administered Dose 1 gm .ROUTE .STK-MED ONE Stop: 04/26/20 13:08 Fentanyl (Sublimaze) Confirm Administered Dose 100 mcg .ROUTE .STK-MED ONE Stop: 04/26/20 10:40 Fentanyl (Sublimaze) Confirm Administered Dose 100 mcg .ROUTE .STK-MED ONE Stop: 04/26/20 12:00 Fentanyl (Sublimaze) Confirm Administered Dose 100 mcg .ROUTE .STK-MED ONE Stop: 04/26/20 12:53 Glycopyrrolate (Robinul) Confirm Administered Dose 0.4 mg .ROUTE .STK-MED ONE Stop: 04/26/20 10:41 Hydromorphone HCl (Dilaudid) Confirm Administered Dose 2 mg .ROUTE .STK-MED ONE Stop: 04/26/20 13:05 Lactated Ringer's (Ringers, Lactated) 1,000 mls @ 125 mls/hr IV ASDIRECTED [facility] Last Admin: 04/26/20 11:40 Dose: 125 mls/hr Documented by: Sodium Chloride (Normal Saline) Confirm Administered Dose 20 mls @ as directed .ROUTE .STK-MED ONE Stop: 04/26/20 11:41 Lactated Ringer's (Ringers, Lactated) 1,000 mls @ 125 mls/hr IV ASDIRECTED [facility] Last Admin: 04/27/20 03:28 Dose: 125 mls/hr Documented by: Piperacillin Sod/Tazobactam (Sod 3.375 gm/ Sodium Chloride) 100 mls @ 200 mls/hr IV Q6H [facility] Acetaminophen (Ofirmev 1000 Mg/100 Ml) Confirm Administered Dose 100 mls @ as directed .ROUTE .STK-MED ONE Stop: 04/26/20 15:10 Acetaminophen 1,000 mg/ Premix 100 mls @ 400 mls/hr IV NOW ONE Stop: 04/26/20 15:23 Last Admin: 04/26/20 15:16 Dose: 400 mls/hr Documented by: Lidocaine (Xylocaine-Mpf 2%) Confirm Administered Dose 5 ml .ROUTE .STK-MED ONE Stop: 04/26/20 10:41 Midazolam HCl (Versed 1 Mg/Ml) Confirm Administered Dose 2 mg .ROUTE .STK-MED ONE Stop: 04/26/20 10:40 Ondansetron HCl (Zofran) Confirm Administered Dose 4 mg .ROUTE .STK-MED ONE Stop: 04/26/20 10:40 Propofol (Diprivan 20 Ml) Confirm Administered Dose 400 mg .ROUTE .STK-MED ONE Stop: 04/26/20 10:40 Propofol (Diprivan 20 Ml) Confirm Administered Dose 200 mg .ROUTE .STK-MED ONE Stop: 04/26/20 14:16 Rocuronium [place] (Rocuronium [place]) Confirm Administered Dose 50 mg .ROUTE .STK-MED ONE Stop: 04/26/20 10:41 Rocuronium [place] (Rocuronium [place]) Confirm Administered Dose 50 mg .ROUTE .STK-MED ONE Stop: 04/26/20 13:02 - Exam Wound/Incisions: Healing Well, Dressing Dry and Intact General: Alert, Oriented HEENT: Pupils Equal, Pupils Reactive Lungs: Clear to Auscultation, Normal Respiratory Effort Cardiovascular: Regular Rate, Regular Rhythm GI/Abdominal Exam: Soft, Non-Tender, No Distention Extremities: Normal Inspection, Normal Range of Motion Skin: Warm, Dry, Intact Sepsis Event Note - Evaluation Sepsis Screening Result: No Definite Risk - Focused Exam Vital Signs: Vital Signs Temp Pulse Resp BP Pulse Ox 04/27/20 08:15 36.8 C 86 12 111/54 L 96 04/27/20 03:56 37.1 C 77 18 111/53 L 97 04/26/20 23:57 36.3 C 83 18 128/65 97 - Problem List & Annotations (1) Acute cholecystitis due to biliary calculus SNOMED Code(s): 33527295093887 Code(s): K80.00 - CALCULUS OF GALLBLADDER W ACUTE CHOLECYST W/O OBSTRUCTION Status: Acute Current Visit: Yes - Problem List Review Problem List Initiated/Reviewed/Updated: Yes - My Orders Last 24 Hours: Active Orders 24 hr Category Date Time Status Patient Status [ADT] Routine ADT 04/26/20 14:45 Active Communication Order [RC] PER UNIT ROUTINE Care 04/26/20 14:52 Active DC Marquez Catheter [Urinary Catheter Removal] [RC] PER Care 04/27/20 07:15 Active UNIT ROUTINE Intake and Output [RC] Q4HR Care 04/26/20 14:46 Active Notify Provider Intake and Out [RC] PRN Care 04/26/20 14:47 Active Notify Provider Vital Signs [RC] PRN Care 04/26/20 14:47 Active Oxygen Therapy [RC] PRN Care 04/26/20 14:45 Active RT Incentive Spirometry [RC] Q1HWA Care 04/26/20 14:45 Active Up ad Lindsey [RC] ASDIRECTED Care 04/26/20 14:45 Active Vital Signs [RC] Q4H Care 04/26/20 14:45 Active Regular Diet [DIET] Diet 04/27/20 Lunch Active CBC W/O DIFF,HEMOGRAM [HEME] AM Lab 04/28/20 05:11 Ordered RED BLOOD CELLS LP [BBK] Stat Lab 04/26/20 13:49 Results TYPE AND SCREEN [BBK] Stat Lab 04/26/20 13:49 Results Acetaminophen/HYDROcodone [Colt 325-5 MG] Med 04/26/20 14:45 Active 2 tab PO Q4H PRN Cyclobenzaprine [Flexeril] Med 04/26/20 22:00 Active 5 mg PO TID HYDROmorphone [Dilaudid] Med 04/26/20 14:45 Active 0.5 mg IVPUSH Q1H PRN Ketorolac [Toradol] Med 04/26/20 14:45 Active 30 mg IVPUSH Q6H Lactated Ringers [Ringers, Lactated] 1,000 ml Med 04/26/20 14:45 Active IV .BOLUS Magnesium Chloride [Mag-64] Med 04/27/20 09:00 Active 64 mg PO DAILY Multivitamins [Tab-A-Charla] Med 04/27/20 09:00 Active 1 tab PO DAILY Omeprazole Med 04/27/20 07:30 Active 20 mg PO ACBREAKFAST Piperacillin/Tazobactam [Piperacil-Tazobact] 3.375 gm Med 04/26/20 17:45 Active Sodium Chloride 0.9% [Normal Saline] 100 ml IV Q6H Scopolamine [Transderm-Scop] Med 04/26/20 11:30 Active 1.5 mg TRDERM Q72H PRN Sodium Chloride 0.9% [Normal Saline] Med 04/26/20 14:45 Active 10 ml IV ASDIRECTED PRN Sodium Chloride 0.9% [Saline Flush] Med 04/26/20 14:45 Active 10 ml FLUSH ASDIRECTED PRN Sodium Chloride 0.9% [Saline Flush] Med 04/26/20 14:45 Active 2.5 ml FLUSH ASDIRECTED PRN diphenhydrAMINE [Benadryl] Med 04/26/20 14:45 Active 50 mg IVPUSH Q4H PRN polyethylene glycoL 3350 [MiraLAX] Med 04/27/20 09:00 Active 17 gm PO DAILY Abdominal Binder [OM.PC] Per Unit Routine Oth 04/26/20 14:51 Ordered Peripheral IV Insertion Adult [OM.PC] Urgent Oth 04/26/20 14:45 Ordered Resuscitation Status Routine Resus Stat 04/26/20 14:45 Ordered Medication Orders Hydrocodone Bitart/Acetaminophen (Colt 325-5 Mg) 2 tab PO Q4H PRN PRN Reason: Pain (moderate 4-6) Cyclobenzaprine HCl (Flexeril) 5 mg PO TID [facility] Last Admin: 04/27/20 06:36 Dose: 5 mg Documented by: Admin: 04/26/20 21:04 Dose: 5 mg Documented by: TINO Diphenhydramine HCl (Benadryl) 50 mg IVPUSH Q4H PRN PRN Reason: Itching Hydromorphone HCl (Dilaudid) 0.5 mg IVPUSH Q1H PRN PRN Reason: Pain (severe 7-10) Lactated Ringer's (Ringers, Lactated) 1,000 mls @ 999 mls/hr IV .BOLUS VALERIE Piperacillin Sod/Tazobactam (Sod 3.375 gm/ Sodium Chloride) 100 mls @ 200 mls/hr IV Q6H [facility] Last Admin: 04/27/20 06:35 Dose: 200 mls/hr Documented by: Infusion: 04/27/20 00:49 Dose: 200 mls/hr Documented by: Admin: 04/27/20 00:19 Dose: 200 mls/hr Documented by: Infusion: 04/26/20 18:07 Dose: 200 mls/hr Documented by: Admin: 04/26/20 17:37 Dose: 200 mls/hr Documented by: MARTÍN Ketorolac Tromethamine (Toradol) 30 mg IVPUSH Q6H [facility] Stop: 04/27/20 08:46 Last Admin: 04/27/20 03:27 Dose: 30 mg Documented by: Admin: 04/26/20 21:03 Dose: 30 mg Documented by: Admin: 04/26/20 15:09 Dose: 30 mg Documented by: [id number] Magnesium Chloride (Mag-64) 64 mg PO DAILY [facility] Multivitamins/Minerals/Vitamin C (Tab-A-Charla) 1 tab PO DAILY [facility] Omeprazole (Omeprazole) 20 mg PO ACBREAKFAST [facility] Last Admin: 04/27/20 06:36 Dose: 20 mg Documented by: TINO Polyethylene Glycol (Miralax) 17 gm PO DAILY [facility] Scopolamine (Transderm-Scop) 1.5 mg TRDERM Q72H PRN PRN Reason: Nausea Last Admin: 04/26/20 11:40 Dose: 1.5 mg Documented by: FENSGLO Sodium Chloride (Saline Flush) 10 ml FLUSH ASDIRECTED PRN PRN Reason: Keep Vein Open Sodium Chloride (Saline Flush) 2.5 ml FLUSH ASDIRECTED PRN PRN Reason: Keep Vein Open Sodium Chloride (Normal Saline) 10 ml IV ASDIRECTED PRN PRN Reason: IV Use - Plan Plan (Free Text/Narrative):: Pain: Scheduled Flexeril and Toradol to continue today. When necessary Colt 325-5 mg 2 tab q 4hr prn pain. For severe pain patient can use IV dilaudid 0.5mg q 1hr. Abdominal binder for comfort. CV/Pulm: I showed the patient how to use the incentive spirometer this morning. He should get up out of bed for all meals and walk around the unit at least twice today. Vitals otherwise stable. GI: LFTs and bilirubin mildly elevated today which I would expect after surgery. Will recheck labs tomorrow. Drain in right upper quadrant with scant serosanguineous output. Advance diet from clears to regular. Will discontinue IV fluids. Multivitamin daily. Replacing magnesium. Renal: Urine output adequate. Discontinue Marquez catheter. ID: Stop [email or web address] this evening. WBC normal today. No fever. Heme: Hemoglobin dropped to 13 as to be expected. Otherwise continue to monitor drain output. Px: GI px with omeprazole. Lovenox to start this evening.
[2020-04-27] MEDS: Polyethylene Glycol 3350 Powder 17 GM Packet PO SCH (08:36)
[2020-04-27] MEDS: Multivitamin Tab PO SCH (08:36)
[2020-04-27] MEDS: Acetaminophen/HYDROcodone 325-5 MG Tab PO PRN ×4 (10:46→23:30)
[2020-04-27] MEDS: Magnesium Chloride 64 MG Tab.ER PO SCH (11:37)
[2020-04-27] MEDS ORDERED: Enoxaparin 40 MG/0.4 ML Syringe SUBCUT SCH (17:00)
[2020-04-28] MEDS: Acetaminophen/HYDROcodone 325-5 MG Tab PO PRN ×2 (04:36→09:10)
[2020-04-28] MEDS: Omeprazole 20 MG Cap.CR PO SCH (06:37)
[2020-04-28] MEDS: Cyclobenzaprine 5 MG Tab PO SCH (06:37)
--- NOTE | 2020-04-28 07:48 | PCM.DCSUM1 ---
Discharge Summary - Hospital Course Free Text/Narrative:: The patient is a 34 year old male who presented to clinic with acute RUQ pain. He has a history of symptomatic cholelithiasis. He had been to the ER 2 weeks ago with pain that resolved with medications. He had pain on Saturday and presented to the ER. His labs were within normal range so he was given pain medications and sent home. His pain is clinic was manageable but not gone. He had a positive Aiken's sign. I performed a RUQ US that showed acute cholecys titis secondary to biliary calculus. He was taken to the OR the next day. The patient had a severely thickened and inflamed gallbladder. There was bleeding during the case. It was converted from laparoscopic to open. He lost ~ 900ml of blood during the case. He was stable after the case. He was given 1L of fluid post op and his UOP increased. He was stable overnight. His hemoglobin dropped to 13. His AST and ALT as well as bili were slightly elevated the next day. His pain was well managed on scheduled toradol and flexeril. He had norco and IV dilaudid prn. His diet was advanced without difficulty. He ambulated through the halls. His drain output was scant and serousanguinous changing into serous. His drain was removed on POD #2. He was cleared for discharge. - Discharge Data Discharge Date: 04/28/20 Discharge Disposition: Home, Self-Care 01 Condition: Good - Referral to Home Health Primary Care Physician: PCP None - Discharge Diagnosis/Problem(s) (1) Acute cholecystitis due to biliary calculus SNOMED Code(s): 73925601404288 ICD Code: K80.00 - CALCULUS OF GALLBLADDER W ACUTE CHOLECYST W/O OBSTRUCTION Status: Acute Current Visit: Yes - Patient Summary/Data Operative Procedure(s) Performed: Laparoscopic converted to open cholecystectomy - Patient Instructions Diet: Regular Diet as Tolerated Activity: No Lifting Over 20 Pounds (for six weeks ), Rest and Relax Today Driving: Do Not Drive (for one week ) Showering/Bathing: May Shower, No Tub Bathing/Swimming (for 2 weeks ) Wound/Incision Care: Keep Operative Site/Wound Site Clean and Dry Notify Provider of: Fever, Increased Pain, Swelling and Redness, Drainage, Nausea and/or Vomiting - Discharge Plan *PRESCRIPTION DRUG MONITORING PROGRAM REVIEWED*: Yes *COPY OF PRESCRIPTION DRUG MONITORING REPORT IN PATIENT ALICE: Yes Prescriptions/Med Rec: polyethylene glycoL 3350 [MiraLAX] 17 gm PO DAILY #5 packet Home Medications: Home Meds polyethylene glycoL 3350 [MiraLAX] 17 gm PO DAILY #5 packet 04/28/20 [Rx] Patient Handouts: Open Cholecystectomy, Cholecystostomy, Care After Referrals: Fernanda Garrido MD [Physician] - 05/04/20 10:00 am - Discharge Summary/Plan Comment DC Time >30 min.: No - General Info Date of Service: 04/28/20 - Review of Systems General: Reports: No Symptoms HEENT: Reports: No Symptoms Pulmonary: Reports: No Symptoms Cardiovascular: Reports: No Symptoms Gastrointestinal: Reports: No Symptoms Genitourinary: Reports: No Symptoms Musculoskeletal: Reports: No Symptoms - Patient Data Vitals - Most Recent: Last Vital Signs Temp 36.6 C 04/28/20 04:00 Pulse 77 04/28/20 04:00 Resp 18 04/28/20 04:00 BP 116/64 04/28/20 04:00 Pulse Ox 97 04/28/20 04:00 Weight - Most Recent: 111.13 kg I&O - Last 24 hours: Intake & Output 04/27/20 04/28/20 04/28/20 22:59 06:59 14:59 Intake Total 927 800 Output Total 465 30 Balance 462 770 Med Orders - Current: Current Medications Hydrocodone Bitart/Acetaminophen ([place] 325-5 Mg) 2 tab PO Q4H PRN PRN Reason: Pain (moderate 4-6) Last Admin: 04/28/20 04:36 Dose: 2 tab Documented by: Cyclobenzaprine HCl (Flexeril) 5 mg PO TID [facility] Last Admin: 04/28/20 06:37 Dose: 5 mg Documented by: Diphenhydramine HCl (Benadryl) 50 mg IVPUSH Q4H PRN PRN Reason: Itching Enoxaparin Sodium (Lovenox) 40 mg SUBCUT Q24H [facility] Last Admin: 04/27/20 17:14 Dose: 40 mg Documented by: Hydromorphone HCl (Dilaudid) 0.5 mg IVPUSH Q1H PRN PRN Reason: Pain (severe 7-10) Lactated Ringer's (Ringers, Lactated) 1,000 mls @ 999 mls/hr IV .BOLUS [facility] Magnesium Chloride (Mag-64) 64 mg PO DAILY [facility] Last Admin: 04/27/20 11:37 Dose: 64 mg Documented by: Multivitamins/Minerals/Vitamin C (Tab-A-Charla) 1 tab PO DAILY [facility] Last Admin: 04/27/20 08:36 Dose: 1 tab Documented by: Omeprazole (Omeprazole) 20 mg PO ACBREAKFAST [facility] Last Admin: 04/28/20 06:37 Dose: 20 mg Documented by: Polyethylene Glycol (Miralax) 17 gm PO DAILY [facility] Last Admin: 04/27/20 08:36 Dose: 17 gm Documented by: Scopolamine (Transderm-Scop) 1.5 mg TRDERM Q72H PRN PRN Reason: Nausea Last Admin: 04/26/20 11:40 Dose: 1.5 mg Documented by: Sodium Chloride (Saline Flush) 10 ml FLUSH ASDIRECTED PRN PRN Reason: Keep Vein Open Sodium Chloride (Saline Flush) 2.5 ml FLUSH ASDIRECTED PRN PRN Reason: Keep Vein Open Last Admin: 04/27/20 08:40 Dose: 2.5 ml Documented by: Sodium Chloride (Normal Saline) 10 ml IV ASDIRECTED PRN PRN Reason: IV Use Discontinued Medications Bupivacaine HCl (Sensorcaine-Mpf 0.5%) Confirm Administered Dose 20 ml .ROUTE .STK-MED ONE Stop: 04/26/20 10:45 Bupivacaine HCl (Marcaine 0.5%) Confirm Administered Dose 150 ml .ROUTE .STK-MED ONE Stop: 04/26/20 13:03 Cefazolin Sodium (Ancef) Confirm Administered Dose 2 gm .ROUTE .STK-MED ONE Stop: 04/26/20 11:41 Cefazolin Sodium (Ancef) Confirm Administered Dose 1 gm .ROUTE .STK-MED ONE Stop: 04/26/20 13:08 Fentanyl (Sublimaze) Confirm Administered Dose 100 mcg .ROUTE .STK-MED ONE Stop: 04/26/20 10:40 Fentanyl (Sublimaze) Confirm Administered Dose 100 mcg .ROUTE .STK-MED ONE Stop: 04/26/20 12:00 Fentanyl (Sublimaze) Confirm Administered Dose 100 mcg .ROUTE .STK-MED ONE Stop: 04/26/20 12:53 Glycopyrrolate (Robinul) Confirm Administered Dose 0.4 mg .ROUTE .STK-MED ONE Stop: 04/26/20 10:41 Hydromorphone HCl (Dilaudid) Confirm Administered Dose 2 mg .ROUTE .STK-MED ONE Stop: 04/26/20 13:05 Lactated Ringer's (Ringers, Lactated) 1,000 mls @ 125 mls/hr IV ASDIRECTED [facility] Last Admin: 04/26/20 11:40 Dose: 125 mls/hr Documented by: Sodium Chloride (Normal Saline) Confirm Administered Dose 20 mls @ as directed .ROUTE .STK-MED ONE Stop: 04/26/20 11:41 Lactated Ringer's (Ringers, Lactated) 1,000 mls @ 125 mls/hr IV ASDIRECTED [facility] Last Admin: 04/27/20 03:28 Dose: 125 mls/hr Documented by: Piperacillin Sod/Tazobactam (Sod 3.375 gm/ Sodium Chloride) 100 mls @ 200 mls/hr IV Q6H [facility] Last Admin: 04/27/20 11:23 Dose: Not Given Documented by: Acetaminophen (Ofirmev 1000 Mg/100 Ml) Confirm Administered Dose 100 mls @ as directed .ROUTE .STK-MED ONE Stop: 04/26/20 15:10 Last Admin: 04/27/20 11:23 Dose: Not Given Documented by: Acetaminophen 1,000 mg/ Premix 100 mls @ 400 mls/hr IV NOW ONE Stop: 04/26/20 15:23 Last Admin: 04/26/20 15:16 Dose: 400 mls/hr Documented by: Piperacillin Sod/Tazobactam (Sod 3.375 gm/ Sodium Chloride) 100 mls @ 200 mls/hr IV Q6H [facility] Stop: 04/27/20 16:00 Last Admin: 04/27/20 12:04 Dose: 200 mls/hr Documented by: Ketorolac Tromethamine (Toradol) 30 mg IVPUSH Q6H [facility] Stop: 04/27/20 08:46 Last Admin: 04/27/20 08:37 Dose: 30 mg Documented by: Lidocaine (Xylocaine-Mpf 2%) Confirm Administered Dose 5 ml .ROUTE .STK-MED ONE Stop: 02/23/21 10:41 Midazolam HCl (Versed 1 Mg/Ml) Confirm Administered Dose 2 mg .ROUTE .STK-MED ONE Stop: 04/26/20 10:40 Ondansetron HCl (Zofran) Confirm Administered Dose 4 mg .ROUTE .STK-MED ONE Stop: 04/26/20 10:40 Propofol (Diprivan 20 Ml) Confirm Administered Dose 400 mg .ROUTE .STK-MED ONE Stop: 04/26/20 10:40 Propofol (Diprivan 20 Ml) Confirm Administered Dose 200 mg .ROUTE .STK-MED ONE Stop: 04/26/20 14:16 Rocuronium Jackhorn (Rocuronium Jackhorn) Confirm Administered Dose 50 mg .ROUTE .STK-MED ONE Stop: 04/26/20 10:41 Rocuronium Jackhorn (Rocuronium Jackhorn) Confirm Administered Dose 50 mg .ROUTE .STK-MED ONE Stop: 04/26/20 13:02 - Exam General: Reports: Alert, Oriented HEENT: Reports: Pupils Equal, Pupils Reactive Lungs: Reports: Clear to Auscultation, Normal Respiratory Effort Cardiovascular: Reports: Regular Rate, Regular Rhythm GI/Abdominal Exam: Soft, Non-Tender, No Distention, Other (Staple line is intact with no signs of infection or breakd) Extremities: Normal Inspection Skin: Reports: Warm, Dry, Intact Wound/Incisions: Reports: Healing Well, No Drainage Psy/Mental Status: Reports: Alert, Normal Affect
[2020-04-28] MEDS: Polyethylene Glycol 3350 Powder 17 GM Packet PO SCH (09:10)
[2020-04-28] MEDS: Multivitamin Tab PO SCH (09:11)
[2020-04-28] MEDS: Magnesium Chloride 64 MG Tab.ER PO SCH (11:09)
== END 2020-04-28 10:55 | disposition home or self-care (01) | DRG 263 ==
LOC: MW.SDS 10:01 → MW.MS 14:45 → MW.SDS 14:46 → MW.MS 19:35
PROVIDERS: ADMIT Surgery; ATTEND Surgery
PROC: 0FT40ZZ Resection of Gallbladder, Open Approach (ICD-10-PCS; principal; 2020-04-26)
PROC: 0FJ44ZZ Inspection of Gallbladder, Percutaneous Endoscopic Approach (ICD-10-PCS; 2020-04-26)
DX: K80.42 Calculus of bile duct with acute cholecystitis without obstruction (principal); E66.9 Obesity, unspecified; Z68.37 Body mass index [BMI] 37.0-37.9, adult; Z20.822 Contact with and (suspected) exposure to COVID-19
CPT/HCPCS: 36415; 80048; 80053; 83735; 84100; 85014; 85018; 85027; 86850; 86900; 86901; 86920; 86921; 86922; 88304; A9270-GY; J0131; J0690; J1170; J1650; J1885; J2250; J2405; J2543; J2704; J3010; J3490; J7120; U0002

== ENCOUNTER 2024-06-07 19:07 | Emergency (ER) | payer BC ==
[2024-06-07] MEDS ORDERED: Sodium Chloride 0.9% 20 ML SDV IV PRN (19:25)
[2024-06-07] MEDS ORDERED: Sodium Chloride 0.9% 10 ML Syringe FLUSH PRN (19:25)
[2024-06-07] MEDS ORDERED: Sodium Chloride 0.9% 2.5 ML Syringe FLUSH PRN (19:25)
[2024-06-07 19:29] LABS: BASOPHILS ABSOLUTE AUTO 0.01 K/uL (0.00-0.20); BASOPHILS PERCENT AUTO 0.1 % (0.0-1.0); EOSINOPHILS ABSOLUTE AUTO 0.17 K/uL (0.00-0.45); EOSINOPHILS PERCENT AUTO 1.7 % (0.0-6.0); HEMATOCRIT 48.6 % (42.0-52.0); HEMOGLOBIN 16.2 g/dL (14.0-18.0); IMMATURE GRAN ABSOLUTE AUTO 0.02 K/uL (0.00-0.05); IMMATURE GRAN PERCENT AUTO 0.2 % (0.0-0.4); LYMPHOCYTES ABSOLUTE AUTO 3.37 K/uL (1.00-4.80); MEAN CORPUSCULAR HEMOGLOBIN 26.6 pg (28.0-32.0); MEAN CORPUSCULAR HGB CONC 33.3 g/dL (32.0-36.0); MEAN CORPUSCULAR VOLUME 79.7 fL (83.0-99.0); MEAN PLATELET VOLUME 8.7 fL (9.4-12.4); MONOCYTES ABSOLUTE AUTO 0.51 K/uL (0.00-0.80); MONOCYTES PERCENT AUTO 5.1 % (0.0-8.0); NEUTROPHILS ABSOLUTE AUTO 5.84 K/uL (1.80-7.70); NEUTROPHILS PERCENT AUTO 58.9 % (41.0-71.0); PLATELET COUNT,PLT 340 K/uL (150-400); WHITE BLOOD CELL COUNT,WBC 9.92 K/uL (3.9-11.3)
[2024-06-07] MEDS: Sodium Chloride 0.9% 1,000 ML IV ONE (19:50)
[2024-06-07] MEDS: fentaNYL 100 MCG/2 ML SDV IVPUSH ONE ×2 (19:51→21:28)
[2024-06-07] MEDS: Diphtheria,Pertussis(Acell),Tetanus Vaccine 0.5 ML Syringe IM ONE (19:54)
[2024-06-07 19:55] LABS: A/G RATIO 1.2 (0.9-1.6); ALANINE AMINOTRANSFERASE,ALT 64 IU/L (14-63); ALBUMIN 4.7 g/dL (3.4-5.0); ALKALINE PHOSPHATASE 106 U/L (46-116); ASPARTATE AMNIOTRANSFERASE,AST 30 IU/L (15-37); BILIRUBIN TOTAL 1.1 mg/dL (0.2-1.0); BLOOD UREA NITROGEN,BUN 15 mg/dL (7.0-18.0); CALCIUM 9.1 mg/dL (8.5-10.1); CARBON DIOXIDE,CO2 26.7 mmol/L (21.0-32.0); CHLORIDE,CL 103 mmol/L (98-107); CREATININE 1.3 mg/dL (0.8-1.3); GLUCOSE RANDOM 105 mg/dL (74-106); LIPASE 32 U/L (16-77); POTASSIUM,K 3.6 mmol/L (3.5-5.1); PROTEIN TOTAL,TP 8.5 g/dL (6.4-8.2); SODIUM,NA 141 mmol/L (136-148)
[2024-06-07 19:56] LABS: ESTIMATED GFR 73 mL/min (>60)
[2024-06-07 20:48] LABS: APPEARANCE,URINE CLEAR; BILIRUBIN,URINE NEGATIVE (NEGATIVE); COLOR,URINE YELLOW; GLUCOSE,URINE NEGATIVE (NEGATIVE); KETONES,URINE NEGATIVE (NEGATIVE); LEUKOCYTE ESTERASE,URINE NEGATIVE (NEGATIVE); NITRITE,URINE NEGATIVE (NEGATIVE); OCCULT BLOOD,URINE NEGATIVE (NEGATIVE); PROTEIN,URINE NEGATIVE (NEGATIVE); UROBILINOGEN,URINE 0.2 EU/dL (<2.0)
== END 2024-06-07 22:05 ==
LOC: MW.ED 19:07
DX: S40.211A Abrasion of right shoulder, initial encounter (principal); S19.9XXA Unspecified injury of neck, initial encounter; R20.2 Paresthesia of skin; E66.9 Obesity, unspecified; Z79.899 Other long term (current) drug therapy; Z75.8 Other problems related to medical facilities and other health care; V86.55XA Driver of 3- or 4- wheeled all-terrain vehicle (ATV) injured in nontraffic accident, initial encounter
CPT/HCPCS: 36415; 70450; 71260; 72125; 73030; 74177; 80053; 81003; 83690; 85025; 90471; 90715; 96374; 96376; 99285; J3010; J7030